=== PATIENT | female | born 1985 | race Two or more races ===

== ENCOUNTER 2019-09-05 01:43 | Emergency (ER) | payer OTHER ==
[~2019-09-05] VITALS: Ht 172.7 cm; Wt 86.2 kg
[2019-09-05 01:33] VITALS: BP 148/90
--- NOTE | 2019-09-05 01:33 | NUR ---
ED Nurse Note: Patient brought in by ambulance citing ETOH intoxication. Will continue to monitor. Addendum: 09/05/19 at 0136 by GARRY ED Nurse Note: brought in by ambulance, RAKristopher.
--- NOTE | 2019-09-05 02:57 | Emergency Room Report ---
History of Present Illness General Chief Complaint: Alcohol Intoxication Source: EMS Present Illness HPI Is a 34-year-old female brought in by EMS with alcohol intoxication. She was at a friend's house and was drinking. She is intoxicated and started crying and yelling. According to EMS, patient has history of anxiety and mix with alcohol she became very anxious. This is what her friend told paramedics. Here patient was yelling and screaming and then promptly fell asleep. There is no trauma. No fever chills but no other complaint. No injury. Allergies: Coded Allergies: No Known Allergies (Unverified , 09/05/19) Patient History Past Medical History: see triage record, old chart reviewed Past Surgical History: other Pertinent Family History: none Social History: Reports: alcohol use Now: No Immunizations: other Reviewed Nursing Documentation: PMH: Agreed; PSxH: Agreed Nursing Documentation-PMH Past Medical History: No Stated History Review of Systems All Other Systems: limited - Secondary to intoxication Physical Exam Vital Signs Date Time Temp Pulse Resp B/P (MAP) Pulse Ox O2 Delivery O2 Flow Rate FiO2 09/05/19 01:23 99.0 98 16 148/90 (109) 96 Room Air Vitals unremarkable Sp02 EP Interpretation: reviewed, normal General Appearance: well appearing, no apparent distress, other - Very intoxicated Head: normocephalic, atraumatic Eyes: bilateral eye PERRL, bilateral eye EOMI ENT: hearing grossly normal, normal pharynx Neck: full range of motion, supple, no meningismus Respiratory: chest non-tender, lungs clear, normal breath sounds Cardiovascular #1: regular rate, rhythm, no murmur Gastrointestinal: normal bowel sounds, non tender, no mass, no organomegaly, no bruit, non-distended Musculoskeletal: back normal, normal range of motion Psychiatric: anxious Medical Decision Making Diagnostic Impression: Primary Impression: Acute alcoholic intoxication Qualified Codes: F10.920 - Alcohol use, unspecified with intoxication, uncomplicated ER Course Patient with anxiety. No trauma to warrant x-ray or CT scan. Will observe until clinical sobriety. Afterward will discharge home. Last Vital Signs Date Time Temp Pulse Resp B/P (MAP) Pulse Ox O2 Delivery O2 Flow Rate FiO2 09/05/19 01:33 98 16 Room Air 09/05/19 01:33 99.0 148/90 96 Status: improved Disposition: HOME, SELF-CARE Condition: Stable Patient Instructions: Alcohol Intoxication, [id number] Additional Instructions: Abstain from drinking to excess. Follow-up with your doctor in 7 days. Return if worse. Alessandro Lemon MD Sep 05, 2019 02:57
--- NOTE | 2019-09-05 03:53 | NUR ---
ED Nurse Note: pt cleared to be d/c per ERMD, pt discharge instruction provided and education done, advised to follow up with pcp and stop drinking alcohol, pt verbalized understanding, pt now awake and alert, boyfriend at the bedside, iv d/c and id band removed, left w/ all belongings, ambulates w/ steady gait, vss.
== END 2019-09-05 03:56 | disposition home or self-care (01) ==
LOC: EMR 02:15
DX: F10.129 Alcohol abuse with intoxication, unspecified (principal)
CPT/HCPCS: 96361; 96374; 99284; J2405; J7030